=== PATIENT | male | born 1985 | race Hispanic/Latino ===

== ENCOUNTER 2018-04-13 13:16 | Emergency (ER) | payer BC ==
--- NOTE | 2018-04-13 13:33 | EDM.PDOC ---
ED HPI GENERAL MEDICAL PROBLEM - General Chief Complaint: ENT Problem Stated Complaint: NOSE IRRIATION/SWELLING Time Seen by Provider: 04/13/18 13:31 Source of Information: Reports: Patient History Limitations: Reports: No Limitations - History of Present Illness INITIAL COMMENTS - FREE TEXT/NARRATIVE: HISTORY AND PHYSICAL: History of present illness: Patient is a 32-year-old male who presents to the ED today with concerns of left nasal/facial swelling. Patient states that 2 days ago he had a "pimple" inside his left nose that he popped. He states that yesterday his left side of his face began to swell. He states that he's been taking ibuprofen around the clock to reduce the swelling. He states that today it continues to be swollen and painful. Patient denies fever, chills, nausea, vomiting, difficulties breathing, chest pain, shortness of breath, or any other GI, , cardiovascular, or respiratory symptoms. Patient does have a history of known high blood pressure which he is not taking medications for. He states his blood pressure today is generally where he runs. Review of systems: As per history of present illness and below otherwise all systems reviewed and negative. Past medical history: As per history of present illness and as reviewed below otherwise noncontributory. Surgical history: As per history of present illness and as reviewed below otherwise noncontributory. Social history: See social history for further information Family history: As per history of present illness and as reviewed below otherwise noncontributory. Physical exam: General: Patient is alert, orientated, in no acute distress. He is sitting comfortably on exam table. HEENT: Atraumatic, normocephalic, pupils equal and reactive bilaterally, negative for conjunctival pallor or scleral icterus, mucous membranes moist, TMs normal bilaterally, throat clear, neck supple, nontender, trachea midline. No drooling or trismus noted. No meningeal signs. No hot potato voice noted. Left maxillary sinus is tender to palpation and swollen without erythema. Localized swelling, does not go into the orbital cavity. The left nare is erythematous and swollen. Was not able to visualize where patient specific issue /pimple was due to swelling. However, patient's left maxillary/narrative is visibly swollen. Patient's teeth are intact without erythema or pain. Lungs: Clear to auscultation, breath sounds equal bilaterally, chest nontender. Heart: S1S2, regular rate and rhythm without overt murmur Abdomen: Soft, nondistended, nontender. Negative for masses or hepatosplenomegaly. Negative for costovertebral tenderness. Pelvis: Stable nontender. Genitourinary: Deferred. Rectal: Deferred. Skin: Intact, warm, dry. No lesions or rashes noted. Extremities: Atraumatic, negative for cords or calf pain. Neurovascular unremarkable. Neuro: Awake, alert, oriented. Cranial nerves II through XII unremarkable. Cerebellum unremarkable. Motor and sensory unremarkable throughout. Exam nonfocal. Notes: On exam today, patient was found to be hypertensive. However after discussion with patient, he does not desire workup for this at this time. He states he has known hypertension prior to his concern today. Discussed the need for follow-up with primary care for his high blood pressure. Patient expresses his understanding at this time. Will start patient on antibiotic for facial swelling. Diagnostics: None Therapeutics: None Prescription: Keflex Impression: 1. Cellulitis, localized nare Plan: 1. Take antibiotic as prescribed. 2. Can alternate Tylenol and Ibuprofen as needed for pain / discomfort. 3. Follow up with your primary care provider regarding concerns and high blood pressure. 4. Return to the ED as needed and as discussed. Definitive disposition and diagnosis as appropriate pending reevaluation and review of above. Left Face/Facial Pain Score (Numeric/FACES): 9 - Related Data Allergies Allergy/AdvReac Type Severity Reaction Status Date / Time No Known Allergies Allergy Verified 04/13/18 13:40 Home Meds: Home Meds cephALEXin [Keflex] 500 mg PO BID 10 Days #20 cap 04/13/18 [Rx] Past Medical History - Past Health History Medical/Surgical History: Denies Medical/Surgical History ED ROS ENT - Review of Systems Review Of Systems: ROS reveals no pertinent complaints other than HPI. ED EXAM, ENT - Physical Exam Exam: See Below (see dictation) Course - Vital Signs Last Recorded V/S: Last Vital Signs Temp 97.9 F 04/13/18 13:32 Pulse 106 H 04/13/18 13:32 Resp 20 04/13/18 13:32 BP 167/118 H 04/13/18 13:32 Pulse Ox 97 04/13/18 13:32 Departure - Departure Time of Disposition: 13:57 Disposition: Home, Self-Care 01 Clinical Impression: Cellulitis Qualifiers: Site of cellulitis: face Qualified Code(s): L03.211 - Cellulitis of face - Discharge Information Prescriptions: cephALEXin [Keflex] 500 mg PO BID 10 Days #20 cap Referrals: PCP,None [Primary Care Provider] - Forms: ED Department Discharge Additional Instructions: The following information is given to patients seen in the emergency department who are being discharged to home. This information is to outline your options for follow-up care. We provide all patients seen in our emergency department with a follow-up referral. The need for follow-up, as well as the timing and circumstances, are variable depending upon the specifics of your emergency department visit. If you don't have a primary care physician on staff, we will provide you with a referral. We always advise you to contact your personal physician following an emergency department visit to inform them of the circumstance of the visit and for follow-up with them and/or the need for any referrals to a consulting specialist. The emergency department will also refer you to a specialist when appropriate. This referral assures that you have the opportunity for follow-up care with a specialist. All of these measure are taken in an effort to provide you with optimal care, which includes your follow-up. Under all circumstances we always encourage you to contact your private physician who remains a resource for coordinating your care. When calling for follow-up care, please make the office aware that this follow-up is from your recent emergency room visit. If for any reason you are refused follow-up, please contact the [facility] Emergency Department at and asked to speak to the emergency department charge nurse. [facility] [address] [place] [id number] [address] [id number] 1. Take antibiotic as prescribed. 2. Can alternate Tylenol and Ibuprofen as needed for pain / discomfort. 3. Follow up with your primary care provider regarding concerns and high blood pressure. 4. Return to the ED as needed and as discussed.
[2018-04-13 14:19] VITALS: BP 175/121
== END 2018-04-13 14:15 | disposition home or self-care (01) ==
LOC: MW.ED 13:16
DX: J34.0 Abscess, furuncle and carbuncle of nose (principal)
CPT/HCPCS: 99283

== ENCOUNTER 2024-12-29 21:14 | Emergency (ER) | payer BC ==
[2024-12-29 22:21] LABS: BASOPHILS ABSOLUTE AUTO 0.02 K/uL (0.00-0.20); BASOPHILS PERCENT AUTO 0.2 % (0.0-1.0); EOSINOPHILS ABSOLUTE AUTO 0.17 K/uL (0.00-0.45); EOSINOPHILS PERCENT AUTO 1.9 % (0.0-6.0); IMMATURE GRAN ABSOLUTE AUTO 0.06 K/uL (0.00-0.05); IMMATURE GRAN PERCENT AUTO 0.7 % (0.0-0.4); LYMPHOCYTES ABSOLUTE AUTO 1.55 K/uL (1.00-4.80); LYMPHOCYTES PERCENT AUTO 17.2 % (24.0-44.0); MEAN PLATELET VOLUME 9.8 fL (9.4-12.4); MONOCYTES ABSOLUTE AUTO 0.67 K/uL (0.00-0.80); MONOCYTES PERCENT AUTO 7.4 % (0.0-8.0); NEUTROPHILS ABSOLUTE AUTO 6.54 K/uL (1.80-7.70); NEUTROPHILS PERCENT AUTO 72.6 % (41.0-71.0); NRBC ABSOLUTE 0.00 K/uL (0.00-0.02); NRBC PERCENT 0.0 /100WBC (0.0-0.2); PLATELET COUNT,PLT 258 K/uL (150-400); RED BLOOD CELL COUNT 5.85 M/uL (4.52-5.90); WHITE BLOOD CELL COUNT,WBC 9.01 K/uL (3.9-11.3)
[2024-12-29 22:46] LABS: INR 0.97 (0.86-1.11); PTT,PARTIAL THROMBOPLSTIN TIME 25.5 SEC (23.9-30.7)
[2024-12-29 23:03] LABS: A/G RATIO 0.9 (0.9-1.6); ALANINE AMINOTRANSFERASE,ALT 68.0 IU/L (14-63); ASPARTATE AMNIOTRANSFERASE,AST 32.0 IU/L (15-37); BILIRUBIN TOTAL 0.6 mg/dL (0.2-1.0); BLOOD UREA NITROGEN,BUN 14.0 mg/dL (7.0-18.0); CARBON DIOXIDE,CO2 31.0 mmol/L (21.0-32.0); CHLORIDE,CL 103.0 mmol/L (98-107); CREATININE 0.9 mg/dL (0.8-1.3); EST CRCL DRUG DOSING (CG) 109.1 mL/min; GLUCOSE RANDOM 100.0 mg/dL (74-106); POTASSIUM,K 4.2 mmol/L (3.5-5.1); PROTEIN TOTAL,TP 8.1 g/dL (6.4-8.2); SODIUM,NA 141.0 mmol/L (136-148)
[2024-12-29 23:13] LABS: ESTIMATED GFR 111.0 mL/min (>60)
[2024-12-30 00:54] VITALS: BP 193/134; PULSE 99
== END 2024-12-30 01:08 | disposition home or self-care (01) ==
LOC: MW.ED 21:14
DX: L03.115 Cellulitis of right lower limb (principal); I10 Essential (primary) hypertension; Z79.899 Other long term (current) drug therapy
CPT/HCPCS: 36415; 80053; 83605; 85025; 85610; 85730; 86140; 93971; 99284; A9270